=== PATIENT | male | born 2000 | race Caucasian/White ===

== ENCOUNTER 2025-01-10 13:36 | Emergency (ER) | payer OTHER, SELFPAY ==
--- NOTE | ~2025-01-10 | XR_ITS ---
XR chest 2V Ordering provider: Nilson Terry APRN History: 24 years Male with . cough, sob, chest tightness/pain, smoker . Comparison: None. FINDINGS: MEDIASTINUM: The cardiac silhouette is not enlarged. LUNGS: No infiltrates, effusions or pneumothorax. OTHER: No free air under the diaphragm. IMPRESSION: No acute cardiopulmonary pathology. Reviewed, dictated and finalized at location A.
--- NOTE | 2025-01-10 13:39 | ED.URI ---
HPI - URI/Sore Throat General Chief Complaint: Upper Respiratory Infection Stated Complaint: Upper Respiratory Symptoms/Chest Congestion Time Seen by Provider: 01/10/25 13:39 Source: patient Mode of arrival: ambulatory Limitations: no limitations History of Present Illness HPI Narrative: Harvey is a 24-year-old male patient presenting to the clinic today with complaints of chest congestion, chest tightness, wheezing, and midsternal chest pain. He reports he was seen at the [facility] clinic 3 days ago for URI symptoms and had COVID, flu, and strep testing completed and they were negative. States over the past 2 days he developed the chest congestion, tightness, wheezing, and chest discomfort. He denies any fevers, chills, or body aches at this time. States the chest discomfort is midsternal and comes and goes in is a dull pain. Related Data Allergies Allergy/AdvReac Type Severity Reaction Status Date / Time No Known Allergies Allergy Verified 01/10/25 13:44 Review of Systems Review of Systems: Pertinent positives per HPI. Patient denies any fever, chills, rash, headache, visual changes, dizziness, palpitations, nausea, vomiting, diarrhea, constipation, abdominal pain, or any urinary issues. PMFSH Surgical History Surgical History History of appendectomy Family History Family History Father Family history of hypercholesterolemia Heart disease Alcohol abuse Mother Hypertension Depression Heart disease Sibling Depression Social History Social History Alcohol intake: never Substance use: current Substance use type: marijuana Living arrangements: with family Occupation/Education: other Gender identity (if verbalized by the patient): Male Spiritual care concerns: No Agree to blood products: Yes Comments At the time of my signature, I reviewed and agree with the nursing past medical, surgical, social, and family history. There is no relevant family history pertinent to the patient complaint. Exam Narrative: General: Well-developed, well nourished, in no apparent distress Head: Normocephalic, atraumatic Eyes: Pupils equally round and reactive to light bilaterally, EOM intact, sclera and conjunctive clear, no discharge, lids normal Ears: TMs intact and clear, ear canals clear, no drainage, grossly hearing normal. Nose: Nares patent, clear nasal discharge, no inflammation, no sinus tenderness. Mouth: Oral pharynx without lesions or masses, good dentition, MMM. Neck: Supple, trachea midline, no enlargement of anterior or posterior cervical nodes, no thyroid masses or goiter palpable. Chest wall: Even rise and fall of the chest wall, bruising or swelling noted, tenderness to palpation to the anterior chest Cardio: Regular rate and rhythm, s1 and s2 normal, no murmur appreciated. Resp: Diminished in the bases otherwise clear, no rhonchi, rales, wheezing or rubs Course Course Emergency Course: Portions of this record may have been created with voice recognition software. Level of Care: Express Care Visit Vital Signs Vital signs: Vital Signs Temperature 37.2 C 01/10/25 13:45 Pulse Rate 76 01/10/25 13:45 Respiratory Rate 18 01/10/25 13:45 Blood Pressure 140/71 01/10/25 13:45 Pulse Oximetry 99 01/10/25 13:45 Oxygen Delivery Room Air 01/10/25 13:45 Temperature 37.2 C 01/10/25 13:45 Pulse Rate 76 01/10/25 13:45 Respiratory Rate 18 01/10/25 13:45 Blood Pressure 140/71 01/10/25 13:45 Pulse Oximetry 99 01/10/25 13:45 Oxygen Delivery Room Air 01/10/25 13:45 Vital signs reviewed MDM - URI/Sore Throat MDM Narrative Medical decision making narrative: At the time of visit patient is resting comfortably on the exam table. Patient appears to be nontoxic. EKG: EKG shows sinus bradycardia with a heart rate of 51 beats per minute with an incomplete right bundle-branch block. No ST elevation, depression, or T-wave inversion. Diagnostics: Chest x-ray was performed and shows no acute cardiopulmonary process. Plan: I suspect patient has chest wall pain/acute cough. Supportive measures were discussed with the patient and they voiced understanding discharge instructions and agrees to treatment plan. Return precautions reviewed Well criteria for PE 0.0?points Low risk group: 1.3% chance of PE in an ED population. Another study assigned scores <=4 as ?PE Unlikely? and had a 3% incidence of PE. Differential Diagnosis Differential diagnosis: Likely upper respiratory infection, otitis media, sinusitis, viral infection, bronchitis, influenza, pharyngitis and other (COVID) ECG Data EKG #1: Attestation: I personally reviewed and interpreted this ECG as follows: ECG completion date: 01/10/25 ECG completion time: 13:54 Prior ECG tracings: not available for review Interpretation: EKG shows sinus bradycardia with an incomplete right bundle-branch block with a heart rate of 51 beats per minute. No ST elevation, depression, or T-wave inversion noted. AR interval is 134 milliseconds, QRS durations 110 milliseconds, QT-QTC see is 415-393 milliseconds, P-R-T axis is 19 63 49 Discharge Plan Discharge Clinical Impression: Acute cough, Anterior chest wall pain Patient Disposition: Home, Self-Care Condition: Stable Instructions: Antibiotic Form, Acute Cough (ED), Chest Wall Pain (ED) Additional Instructions: EKG shows sinus bradycardia Chest x-rays negative for any acute cardiopulmonary process. Take prescription medications only as prescribed Increase fluids and stay well hydrated Tylenol/motrin for pain/fever Flonase and OTC antihistamines as directed Vicks vapor rub to open sinuses Sinus rinses for congestion Cepacol spray, cough drops, throat lozenges, warm tea with honey/lemon, gargle salt water to soothe throat BRAT diet for diarrhea Clear liquids x 24 hours then advance as tolerated for nausea/vomiting Go to the ED if you develop a worsening in your condition- high fever not controlled by Tylenol or Motrin, dehydration, weakness, lethargy, shortness of breath, or chest pain. Follow up with your PCP in 3-5 days if symptoms persist. Patient Language: [place] Prescriptions: New naproxen 500 mg tablet 500 mg PO BID PRN (Reason: pain) 7 Days Qty: 14 0RF albuterol sulfate 90 mcg/actuation HFA aerosol inhaler 2 puff inhalation Q4-6H PRN (Reason: shortness of breath or wheezing) 30 Days Qty: 8.5 0RF Follow-up/Referrals: UNKNOWN,DOCTOR [Non-Staff] - Time of Disposition: 14:10 Quality NIHSS Nursing Documentation ED NIHSS nursing documentation: reviewed/agree
[2025-01-10 13:45] VITALS: BP 140/71; PULSE 76; RESP 18; TEMP 37.2; O2SAT 99
--- NOTE | 2025-01-10 13:48 | ECG_ITS ---
Test Date: 2025-01-10 13:54:43 Measurements Intervals [place] Rate: 51 P: 19 [place]: 134 QRS: 63 QRSD: 110 T: 49 QT: 415 QTc: 386 Interpretive Statements SINUS BRADYCARDIA INCOMPLETE RIGHT BUNDLE BRANCH BLOCK [90+ ms QRS DURATION, TERMINAL R IN V1/V2, 40+ ms S IN I/aVL/V4/V5/V6] No previous ECG available for comparison Electronically Signed On 01-11-2025 15:37:49 CDT by Sybil Scales M.D.
== END 2025-01-10 14:18 | disposition home or self-care (01) ==
PROVIDERS: Emergency Provider Nurse Practitioner Family
DX: R05.1 Acute cough (principal); R07.89 Other chest pain; F12.90 Cannabis use, unspecified, uncomplicated
CPT/HCPCS: 71046; 93005; 99213; G0463